=== PATIENT | male | born 1990 | race Caucasian/White ===

== ENCOUNTER 2024-02-14 14:31 | Inpatient (IN) ==
[2024-02-14 14:59] VITALS: BMI 69.7
[2024-02-14 17:58] LABS: BLOOD UREA NITROGEN 17 mg/dL (7-18); CALCIUM 8.8 mg/dL (8.5-10.1); CARBON DIOXIDE 32.8 mmol/L (21-32); CHLORIDE 105 mmol/L (98-107); CREATININE 1.06 mg/dL (0.70-1.30); GLUCOSE 98 mg/dL (65-99); POTASSIUM 3.7 mmol/L (3.5-5.1); SODIUM 142 mmol/L (136-145); eGFR NON BLACK RACES > 60 (>60)
[2024-02-14 18:02] LABS: BASOPHILS % (AUTO) 0.2 % (0.2-1.0); EOSINOPHILS # (AUTO) 0.1 x10^3/uL (0.0-0.2); EOSINOPHILS % (AUTO) 0.7 % (0.9-2.9); HEMATOCRIT 36.9 % (42.0-54.0); HEMOGLOBIN 12.4 g/dL (13.5-18.0); LYMPHOCYTES # (AUTO) 1.4 X10^3/uL (1.3-2.9); MEAN CORPUSCULAR HEMOGLOBIN 26.5 pg (27.0-34.0); MEAN CORPUSCULAR HGB CONC 33.5 g/dL (33.0-35.0); MEAN CORPUSCULAR VOLUME 79.1 fL (80.0-100.0); MEAN PLATELET VOLUME 6.6 fL (7.4-11.0); MONOCYTES # (AUTO) 0.7 x10^3/uL (0.3-0.8); MONOCYTES % (AUTO) 6.6 % (0.0-13.0); NEUTROPHILS % (AUTO) 78.5 % (42.0-75.0); PLATELET COUNT 139 X10^3/uL (150.0-450.0); RED BLOOD COUNT 4.67 X10^6/uL (4.7-6.0); RED CELL DISTRIBUTION WIDTH 18.4 % (11.6-16.5); WHITE BLOOD COUNT 10.2 X10^3/uL (3.6-10.0)
[2024-02-14] MEDS: ANCEF VIAL 1 GRAM IVP SCH (18:16)
--- NOTE | 2024-02-14 19:08 | DR.EXTPAIN ---
HPI Time seen Time Seen by Provider: 02/14/24 16:19 PCP Primary Care Physician: Gladys Horvath Complaint/Symptoms Chief Complaint Doctor Comments: 33-year-old male, history of lymphedema, complains of diffuse erythema and pain to right lower extremity encompassing his entire leg, onset this morning. Denies fever. Denies other complaints. Chief Complaint:: pt states that he had a doctor's visit todayand he told them about his leg and they told him they couldn't do anything for him to come to the emergency room. He states that he started to swell in his right lower leg about two days ago and it has become red and painful this morning. there is also a scab on the back of his knee. COVID-19 Coronavirus risk:travel/contact w/high risk person: No Has patient experienced Coronavirus symptoms: No Source History Provided: Patient Mode of arrival Mode of Arrival: Ambulatory Timing Onset of Chief Complaint: 02/12/24 PMH PMH Past Medical History: Yes Past Medical History: CHF and Sleep Apnea Past Medical History Comment: lymphedema, chronic myliod leukemia Past Surgical History: Yes Surgical History: Cholecystectomy Family History History of Family Medical Conditions: Yes Family Medical History: Cancer and Hypertension Family Medical History Comment: colon CA, breast CA Social History Does patient currently use any type of tobacco product: Yes Have you used tobacco products in the last 12 months: Yes Type of Tobacco Use: Cigarettes Alcohol Use: None Do you use any recreational Drugs:: No Lives With: Spouse Lives Where: Home Travel Risk Coronavirus risk:travel/contact w/high risk person: No Has patient experienced Coronavirus symptoms: No Infectious screening Have you traveled outside the country in the last 6 months?: No Isolation: Standard ROS Review of Systems Integumentary: Rash (RLE erythema & pain) PE Vital Signs Vitals: Vital Signs Temperature 98.4 F Pulse Rate 79 Respiratory Rate 18 Blood Pressure 114/57 O2 Sat by Pulse Oximetry 96 General Limitations: No Limitations General Appearance: Alert and In No Apparent Distress Head Head Exam: Normal Inspection Eyes Eye exam: Normal Appearance ENT ENT Exam: Normal Exam Neck Neck Exam: Normal Inspection Chest Chest Inspection: Normal Inspection Respiratory Respiratory Exam: Normal Lung Sounds Bilat Cardiovascular Cardiovascular Exam: Regular Rate and Normal Rhythm Extremities Extremities Exam: Edema (severe edema in bilat lower ext, consistent with hx of lymphedema) Back Back Exam: Normal Inspection Neurological Neurological Exam: Alert, Oriented X3 and CN II-XII Intact Psychiatric Psychiatric Exam: Normal Affect and Normal Mood Skin Skin Exam: Warm, Dry, Intact and Erythema (RLE diffuse encompasing 80% of RLE, warm to the touch, consistent with cellulitis.) COURSE Consultation Called: 19:08 Call Returned: :08 Consultation Comments: Dr Hernandez agrees to admit [facility] Labs Reviewed 02/14/24 17:35 02/14/24 17:35 Laboratory: WBC 10.2 X10^3/uL (3.6-10.0) H 02/14/24 17:35 RBC 4.67 X10^6/uL (4.7-6.0) L 02/14/24 17:35 Hgb 12.4 g/dL (13.5-18.0) L 02/14/24 17:35 Hct 36.9 % (42.0-54.0) L 02/14/24 17:35 MCV 79.1 fL (80.0-100.0) L 02/14/24 17:35 MCH 26.5 pg (27.0-34.0) L 02/14/24 17:35 MCHC 33.5 g/dL (33.0-35.0) 02/14/24 17:35 RDW 18.4 % (11.6-16.5) H 02/14/24 17:35 Plt Count 139 X10^3/uL (150.0-450.0) L 02/14/24 17:35 MPV 6.6 fL (7.4-11.0) L 02/14/24 17:35 Neut % (Auto) 78.5 % (42.0-75.0) H 02/14/24 17:35 Lymph % (Auto) 14.0 % (21.0-51.0) L 02/14/24 17:35 [place] % (Auto) 6.6 % (0.0-13.0) 02/14/24 17:35 Eos % (Auto) 0.7 % (0.9-2.9) L 02/14/24 17:35 Baso % (Auto) 0.2 % (0.2-1.0) 02/14/24 17:35 Neut # (Auto) 8.0 x10^3/uL (2.2-4.8) H 02/14/24 17:35 Lymph # (Auto) 1.4 X10^3/uL (1.3-2.9) 02/14/24 17:35 [place] # (Auto) 0.7 x10^3/uL (0.3-0.8) 02/14/24 17:35 Eos # (Auto) 0.1 x10^3/uL (0.0-0.2) 02/14/24 17:35 Baso # (Auto) 0.0 X10^3/uL (0.0-0.1) 02/14/24 17:35 Absolute Nucleated RBC 0.2 /100WBC 02/14/24 17:35 Sodium 142 mmol/L (136-145) 02/14/24 17:35 Corrected Sodium TNP 02/14/24 17:35 Potassium 3.7 mmol/L (3.5-5.1) 02/14/24 17:35 Chloride 105 mmol/L (98-107) 02/14/24 17:35 Carbon Dioxide 32.8 mmol/L (21-32) H 02/14/24 17:35 BUN 17 mg/dL (7-18) 02/14/24 17:35 Creatinine 1.06 mg/dL (0.70-1.30) 02/14/24 17:35 Est GFR (MDRD) Af Amer > 60 (>60) 02/14/24 17:35 Est GFR (MDRD) Non-Af > 60 (>60) 02/14/24 17:35 Glucose 98 mg/dL (65-99) 02/14/24 17:35 Lactic Acid 1.0 mmol/L (0.4-2.0) 02/14/24 17:35 Calcium 8.8 mg/dL (8.5-10.1) 02/14/24 17:35 Opioid Opioid Risk Tool Age (Garry box if 16-45): Yes History of Preadolescent Sexual Abuse: No Total: 1 Total Score Risk Category: Low Risk Copyright: Deniz BHARDWAJ predicting aberrant behaviors Discharge Plan Diagnosis Discharge Problem: Cellulitis of leg, right, Lymphedema of both lower extremities Discharge Plan Patient Disposition: HOME, SELF-CARE Condition: Stable Prescriptions: No Action dasatinib [Sprycel] 100 mg Tablet 100 mg PO QDAY Eliquis 5 mg Tablet 5 mg PO BID benzonatate 100 mg capsule 100 mg PO TID PRNQty: 14 0RF albuterol sulfate 90 mcg/actuation HFA aerosol inhaler 2 puff inhalation Q6H PRNQty: 6.7 0RF furosemide [Lasix] 40 mg tablet 40 mg PO DAILY Health Concerns: Post Hospitalization: new medications and changes needed to prevent readmission or further decline. Pt educated and given instructions on all concerns. Plan of Treatment: Continue with present treatment and follow up plan. Pt is to keep follow up appointment as instructed and take medications as ordered. Orders to Discharge Patient Discharge Orders: Transfer (Routine); Ordered 02/14/24 Ordered By: Kurt Mckinnon Follow ups/Referrals Follow ups/Referrals: SUNNY HORVATH [Primary Care Provider] - 3 days Instructions Stand Alone Forms: Find Help Web Site, Post Hospital Follow Up Care
[2024-02-14] MEDS ORDERED: CONSULT PHARMACY - POTASSIUM & MAGNESIUM XX SCH (22:00)
[2024-02-14] MEDS: K-DUR TAB 20 MEQ PO ONE (23:07)
[2024-02-14] MEDS: ELIQUIS PO SCH (23:07)
[2024-02-14] MEDS: NS 1,000 ML IV 1,000 ML IV SCH (23:08)
[2024-02-15] MEDS: ULTRAM PO PRN (00:02)
[2024-02-15] MEDS ORDERED: NS 100 ML IV 100 ML ONE (04:37)
[2024-02-15 05:33] LABS: EOSINOPHILS # (AUTO) 0.1 x10^3/uL (0.0-0.2); LYMPHOCYTES # (AUTO) 1.4 X10^3/uL (1.3-2.9); NEUTROPHILS # (AUTO) 5.6 x10^3/uL (2.2-4.8)
[2024-02-15 05:48] LABS: BASOPHILS % (AUTO) 0.5 % (0.2-1.0); EOSINOPHILS % (AUTO) 1.3 % (0.9-2.9); HEMOGLOBIN 11.5 g/dL (13.5-18.0); MEAN CORPUSCULAR HEMOGLOBIN 26.2 pg (27.0-34.0); MEAN CORPUSCULAR HGB CONC 32.8 g/dL (33.0-35.0); MEAN CORPUSCULAR VOLUME 79.9 fL (80.0-100.0); MEAN PLATELET VOLUME 6.9 fL (7.4-11.0); MONOCYTES # (AUTO) 0.7 x10^3/uL (0.3-0.8); MONOCYTES % (AUTO) 8.5 % (0.0-13.0); NEUTROPHILS % (AUTO) 71.7 % (42.0-75.0); PLATELET COUNT 139 X10^3/uL (150.0-450.0); RED BLOOD COUNT 4.37 X10^6/uL (4.7-6.0); RED CELL DISTRIBUTION WIDTH 18.2 % (11.6-16.5); WHITE BLOOD COUNT 7.9 X10^3/uL (3.6-10.0)
[2024-02-15 05:49] LABS: ALANINE AMINOTRANSFERASE 21 Units/L (12-78); ALBUMIN 2.6 g/dL (3.4-5.0); ALKALINE PHOSPHATASE 119 Units/L (46-116); ASPARTATE AMINO TRANSFERASE 14 Units/L (15-37); BLOOD UREA NITROGEN 18 mg/dL (7-18); CALCIUM 8.2 mg/dL (8.5-10.1); CARBON DIOXIDE 32.1 mmol/L (21-32); CHLORIDE 104 mmol/L (98-107); COR CA(FOR HYPOALB) 9.3 mg/dL (8.5-10.1); COR NA(FOR HYPERGLY) 143 mmol/L (136-145); CREATININE 1.03 mg/dL (0.70-1.30); GLUCOSE 136 mg/dL (65-99); POTASSIUM 3.6 mmol/L (3.5-5.1); SODIUM 142 mmol/L (136-145); TOTAL PROTEIN 5.8 g/dL (6.4-8.2); eGFR NON BLACK RACES > 60 (>60)
[2024-02-15] MEDS ORDERED: CONSULT PHARMACY - POTASSIUM & MAGNESIUM XX SCH (06:00)
[2024-02-15] MEDS: K-DUR TAB 20 MEQ PO SCH (09:20)
[2024-02-15] MEDS: LASIX PO SCH (09:20)
[2024-02-15] MEDS: DASATINIB 100 MG PO SCH (09:21)
[2024-02-15] MEDS: ZOSYN VIAL 3.375 GRAMS 3.375 G in NS 100 ML IV 100 ML IV SCH (10:59)
[2024-02-15] MEDS: ZYVOX 600MG IV 600 MG/300 ML BAG IV SCH (10:59)
[2024-02-15] MEDS: NS 250 ML IV 250 ML IV ONE (11:00)
[2024-02-16] MEDS: PROVENTIL NEB TX 0.083% 2.5MG/ 3ML NEB PRN (04:38)
[2024-02-16 05:26] LABS: BASOPHILS # (AUTO) 0.1 X10^3/uL (0.0-0.1); BASOPHILS % (AUTO) 0.9 % (0.2-1.0); EOSINOPHILS # (AUTO) 0.1 x10^3/uL (0.0-0.2); EOSINOPHILS % (AUTO) 1.5 % (0.9-2.9); HEMATOCRIT 36.4 % (42.0-54.0); HEMOGLOBIN 11.9 g/dL (13.5-18.0); LYMPHOCYTES # (AUTO) 1.8 X10^3/uL (1.3-2.9); LYMPHOCYTES % (AUTO) 24.4 % (21.0-51.0); MEAN CORPUSCULAR HGB CONC 32.7 g/dL (33.0-35.0); MEAN CORPUSCULAR VOLUME 79.7 fL (80.0-100.0); MEAN PLATELET VOLUME 6.5 fL (7.4-11.0); MONOCYTES # (AUTO) 0.6 x10^3/uL (0.3-0.8); MONOCYTES % (AUTO) 7.6 % (0.0-13.0); NEUTROPHILS # (AUTO) 4.9 x10^3/uL (2.2-4.8); NEUTROPHILS % (AUTO) 65.6 % (42.0-75.0); PLATELET COUNT 155 X10^3/uL (150.0-450.0); RED BLOOD COUNT 4.57 X10^6/uL (4.7-6.0); RED CELL DISTRIBUTION WIDTH 17.8 % (11.6-16.5); WHITE BLOOD COUNT 7.4 X10^3/uL (3.6-10.0)
[2024-02-16 05:38] LABS: ALANINE AMINOTRANSFERASE 25 Units/L (12-78); ALBUMIN 2.7 g/dL (3.4-5.0); ALKALINE PHOSPHATASE 138 Units/L (46-116); ASPARTATE AMINO TRANSFERASE 15 Units/L (15-37); BLOOD UREA NITROGEN 15 mg/dL (7-18); CALCIUM 8.5 mg/dL (8.5-10.1); CARBON DIOXIDE 30.4 mmol/L (21-32); CHLORIDE 105 mmol/L (98-107); COR CA(FOR HYPOALB) 9.5 mg/dL (8.5-10.1); COR NA(FOR HYPERGLY) 143 mmol/L (136-145); CREATININE 1.04 mg/dL (0.70-1.30); GLUCOSE 113 mg/dL (65-99); POTASSIUM 4.2 mmol/L (3.5-5.1); SODIUM 143 mmol/L (136-145); TOTAL PROTEIN 6.1 g/dL (6.4-8.2); eGFR NON BLACK RACES > 60 (>60)
--- NOTE | 2024-02-16 07:09 | DR.H&P ---
H&P History & Physical for Day of: H&P Date: 02/15/24 Chief Complaint Chief Complaint: right lower extremity redness History of Present Illness History of Present Illness: Patient is a 33-year-old male with a past medical history of bilateral lymphedema presenting with redness of his right lower extremity that he noticed a day ago. He reports redness up to his knee. He does have a history of having cellulitis of the lower extremities due to his lymphedema. Denies fevers, chills. Labs/imaging: WBC 10.27.9, hemoglobin 11 .5, platelets 139, sodium 142, potassium 3.6, creatinine 1.03, glucose 136, blood cultures pending. Patient was started on Ancef in the ER. Will change patient to Zosyn and linezolid. Reviewed culture the patient had when he was last admitted. Patient does have extensive redness on his right lower extremity. Will consult and have general surgery evaluate. Restart home medications. Otherwise continue with current treatment plan. Continue closely monitor and follow-up labs. Past Medical History Past Medical History: CHF and Sleep Apnea Past Surgical History Surgical History: Cholecystectomy Family History Family Medical History: Cancer and Hypertension Social History Does patient currently use any type of tobacco product: Yes Have you used tobacco products in the last 12 months: Yes Type of Tobacco Use: Cigarettes How many years tobacco product used: 10 Does any household member use tobacco: No Alcohol Use: None Drug Use: None Medications Home Medications: Home Medications Medication Instructions Recorded Confirmed Type apixaban 5 mg tablet (Eliquis) 5 mg PO BID 12/20/23 02/15/24 History dasatinib 100 mg tablet (Sprycel) 100 mg PO QDAY 12/20/23 02/15/24 History torsemide 20 mg tablet 20 mg PO QAM 02/15/24 02/15/24 History Allergies Allergies Allergy/AdvReac Type Severity Reaction Status Date / Time doxycycline Allergy Severe ANAPHALEXIS Verified 02/12/24 15:21 REACTION latex Allergy Intermediate Verified 02/12/24 15:21 clindamycin AdvReac Intermediate RASH Verified 02/12/24 15:21 sulfamethoxazole AdvReac Intermediate RASH Verified 02/12/24 15:21 [From Bactrim] trimethoprim [From Bactrim] AdvReac Intermediate RASH Verified 02/12/24 15:21 vancomycin AdvReac Intermediate Verified 02/12/24 15:21 Labs 02/16/24 05:00 02/16/24 05:00 Labs: Laboratory WBC 7.4 X10^3/uL (3.6-10.0) 02/16/24 05:00 RBC 4.57 X10^6/uL (4.7-6.0) L 02/16/24 05:00 Hgb 11.9 g/dL (13.5-18.0) L 02/16/24 05:00 Hct 36.4 % (42.0-54.0) L 02/16/24 05:00 MCV 79.7 fL (80.0-100.0) L 02/16/24 05:00 MCH 26.0 pg (27.0-34.0) L 02/16/24 05:00 MCHC 32.7 g/dL (33.0-35.0) L 02/16/24 05:00 RDW 17.8 % (11.6-16.5) H 02/16/24 05:00 Plt Count 155 X10^3/uL (150.0-450.0) 02/16/24 05:00 MPV 6.5 fL (7.4-11.0) L 02/16/24 05:00 Neut % (Auto) 65.6 % (42.0-75.0) 02/16/24 05:00 Lymph % (Auto) 24.4 % (21.0-51.0) 02/16/24 05:00 [place] % (Auto) 7.6 % (0.0-13.0) 02/16/24 05:00 Eos % (Auto) 1.5 % (0.9-2.9) 02/16/24 05:00 Baso % (Auto) 0.9 % (0.2-1.0) 02/16/24 05:00 Neut # (Auto) 4.9 x10^3/uL (2.2-4.8) H 02/16/24 05:00 Lymph # (Auto) 1.8 X10^3/uL (1.3-2.9) 02/16/24 05:00 [place] # (Auto) 0.6 x10^3/uL (0.3-0.8) 02/16/24 05:00 Eos # (Auto) 0.1 x10^3/uL (0.0-0.2) 02/16/24 05:00 Baso # (Auto) 0.1 X10^3/uL (0.0-0.1) 02/16/24 05:00 Absolute Nucleated RBC 0.0 /100WBC 02/16/24 05:00 Sodium 143 mmol/L (136-145) 02/16/24 05:00 Corrected Sodium 143 mmol/L (136-145) 02/16/24 05:00 Potassium 4.2 mmol/L (3.5-5.1) 02/16/24 05:00 Chloride 105 mmol/L (98-107) 02/16/24 05:00 Carbon Dioxide 30.4 mmol/L (21-32) 02/16/24 05:00 BUN 15 mg/dL (7-18) 02/16/24 05:00 Creatinine 1.04 mg/dL (0.70-1.30) 02/16/24 05:00 Est GFR (MDRD) Af Amer > 60 (>60) 02/16/24 05:00 Est GFR (MDRD) Non-Af > 60 (>60) 02/16/24 05:00 Glucose 113 mg/dL (65-99) H 02/16/24 05:00 Lactic Acid 1.0 mmol/L (0.4-2.0) 02/14/24 17:35 Calcium 8.5 mg/dL (8.5-10.1) 02/16/24 05:00 Corrected Calcium 9.5 mg/dL (8.5-10.1) 02/16/24 05:00 Magnesium 2.0 mg/dL (2.0-2.9) 02/16/24 05:00 Total Bilirubin 0.80 mg/dL (0.2-1.0) 02/16/24 05:00 AST 15 Units/L (15-37) 02/16/24 05:00 ALT 25 Units/L (12-78) 02/16/24 05:00 Alkaline Phosphatase 138 Units/L (46-116) H 02/16/24 05:00 Total Protein 6.1 g/dL (6.4-8.2) L 02/16/24 05:00 Albumin 2.7 g/dL (3.4-5.0) L 02/16/24 05:00 Globulin 3.4 g/dL (2.5-4.5) 02/16/24 05:00 Albumin/Globulin Ratio 0.8 Ratio (1.1-2.1) L 02/16/24 05:00 Review of Systems Constitutional: No Symptoms Reported Eyes: No Symptoms Reported ENT: No Symptoms Reported Respiratory: No Symptoms Reported Cardiovascular: No Symptoms Reported Gastrointestinal: No Symptoms Reported Genitourinary: No Symptoms Reported Musculoskeletal: Other (BLE lymphedema) Skin: Other (erythema RLE) Neurological: No Symptoms Reported Physical Exam Vital Signs: Vital Signs Temperature 98.0 F Temperature 98.1 F Pulse Rate [Brachial] 81 Pulse Rate [Brachial] 72 Pulse Rate 70 Respiratory Rate 20 Respiratory Rate 21 Blood Pressure [Left Arm] 116/58 Blood Pressure [Left Arm] 117/61 O2 Sat by Pulse Oximetry 94 O2 Sat by Pulse Oximetry 90 O2 Sat by Pulse Oximetry 90 Oriented: Normal Eyes: Normal Ear: Normal Nose: Normal Throat: Normal Respiratory: Clear Throughout Cardiovascular: Normal : Normal Auscultation: Bowel Sounds: Normal Palpation: Normal Tenderness: Normal Skin: Red (RLE) Musculoskeletal: Normal Psychiatric: Normal Mood Description: Calm and Appropriate Affect: Normal Speech Pattern: Clear and Appropriate Assessment/Plan (1) Cellulitis of leg, right: Status: Acute Plan: IV antibiotics consult general surgery (2) Lymphedema of both lower extremities: Status: Acute Review H&P Reviewed: Yes Patient was examined?: Yes
--- NOTE | 2024-02-16 14:54 | NOTE.SOAP ---
Soap Note Note for Day of Date of Exam: 02/16/24 Subjective Data Subjective Data: Patient seen for morning rounds with girlfriend and nurse at bedside. Does report continued right foot pain with ambulation. Overall the leg is feeling better. Vitals and labs overall stable. Objective Data Objective Data: Morbidly obese male in no acute distress. Hearing intact to conversation. Heart regular rate and rhythm. Speech is clear and lungs with good air movement. Bilateral legs are wrapped. Assessment Assessment: 1. Right lower extremity cellulitis-continue IV antibiotics through today. X-ray foot today. Switch to p.o. tomorrow. Plan on discharging home tomorrow afternoon or Sunday. 2. Chronic venous insufficiency. Agree with outpatient referral to new category specialist for management.
--- NOTE | 2024-02-16 15:10 | DR.CONSULT ---
CONSULT Consultation for Day of: Date: 02/15/24 Chief Complaint Chief Complaint: redness of right leg Allergies Allergies Allergy/AdvReac Type Severity Reaction Status Date / Time doxycycline Allergy Severe ANAPHALEXIS Verified 02/12/24 15:21 REACTION latex Allergy Intermediate Verified 02/12/24 15:21 clindamycin AdvReac Intermediate RASH Verified 02/12/24 15:21 sulfamethoxazole AdvReac Intermediate RASH Verified 02/12/24 15:21 [From Bactrim] trimethoprim [From Bactrim] AdvReac Intermediate RASH Verified 02/12/24 15:21 vancomycin AdvReac Intermediate Verified 02/12/24 15:21 History of Present Illness History of Present Illness: 33 yo male, morbidly obese with history of lymphedema and multiple admissions for cellulitis of the legs.Presents now with redness of the right leg . Past medical history of congestive heart failure and slwwp apnea. Past Medical History Past Medical History: CHF and Sleep Apnea Past Surgical History Surgical History: Cholecystectomy Family History Family Medical History: Cancer and Hypertension Social History Does patient currently use any type of tobacco product: Yes Have you used tobacco products in the last 12 months: Yes Type of Tobacco Use: Cigarettes How many years tobacco product used: 10 Does any household member use tobacco: No Alcohol Use: None Drug Use: None Medications Home Medications: doxycycline Allergy (Severe, Verified 02/12/24 15:21) ANAPHALEXIS REACTION latex Allergy (Intermediate, Verified 02/12/24 15:21) clindamycin Adverse Reaction (Intermediate, Verified 02/12/24 15:21) RASH sulfamethoxazole [From Bactrim] Adverse Reaction (Intermediate, Verified 02/12/24 15:21) RASH trimethoprim [From Bactrim] Adverse Reaction (Intermediate, Verified 02/12/24 15:21) RASH vancomycin Adverse Reaction (Intermediate, Verified 02/12/24 15:21) CONTINUE taking the following medications torsemide 20 mg tablet 20 mg PO QAM 02/15/24 [History] Porfirio Pace Review of Systems Constitutional: See HPI Eyes: No Symptoms Reported ENT: No Symptoms Reported Respiratory: No Symptoms Reported Cardiovascular: No Symptoms Reported Gastrointestinal: No Symptoms Reported Genitourinary: No Symptoms Reported Skin: See HPI Neurological: No Symptoms Reported Physical Exam Vital Signs: Vital Signs Temperature 98.0 F Pulse Rate [Brachial] 81 Pulse Rate 70 Respiratory Rate 20 Blood Pressure [Left Arm] 116/58 O2 Sat by Pulse Oximetry 94 O2 Sat by Pulse Oximetry 90 WBC =7.4 Oriented: Normal, Time, Person, Place and Other (morbid obesity) Eyes: Normal Ear: Normal Nose: Normal Throat: Normal Respiratory: Clear Throughout Cardiovascular: Normal : Normal Auscultation: Bowel Sounds: Normal Palpation: Normal Tenderness: Normal Skin: Other (redness right medial thigh, medial and posterior calf) Musculoskeletal: Tender (right foot ) Psychiatric: Normal Mood Description: Calm Affect: Normal Plan (1) Cellulitis of leg, right: Status: Acute Plan: continue IV antibiotcs, nothing requiring incision and drainage (2) Lymphedema of both lower extremities: Status: Acute
--- NOTE | 2024-02-16 15:15 | NOTE.SOAP ---
Soap Note Note for Day of Date of Exam: 02/16/24 Subjective Data Subjective Data: Treated for cellullitis of right leg secondary to lymphedema. Objective Data Temperature: 97.8 F Pulse Rate: 71 Respiratory Rate: 20 Blood Pressure: 110/52 O2 Sat by Pulse Oximetry: 96 Objective Data: redness right leg improved Assessment Assessment: cellulitis of the right leg Plan Plan: May discharge home from my standpoint on po antibiotics
[2024-02-16] MEDS: ZOFRAN INJ 4 MG VIAL IVP PRN (20:30)
[2024-02-17 06:10] LABS: HEMATOCRIT 35.7 % (42.0-54.0); HEMOGLOBIN 11.8 g/dL (13.5-18.0)
[2024-02-17 06:15] LABS: BASOPHILS # (AUTO) 0.1 X10^3/uL (0.0-0.1); BASOPHILS % (AUTO) 0.6 % (0.2-1.0); EOSINOPHILS # (AUTO) 0.2 x10^3/uL (0.0-0.2); LYMPHOCYTES # (AUTO) 1.6 X10^3/uL (1.3-2.9); LYMPHOCYTES % (AUTO) 15.3 % (21.0-51.0); MEAN CORPUSCULAR HEMOGLOBIN 26.4 pg (27.0-34.0); MEAN PLATELET VOLUME 6.4 fL (7.4-11.0); MONOCYTES # (AUTO) 0.8 x10^3/uL (0.3-0.8); NEUTROPHILS # (AUTO) 7.9 x10^3/uL (2.2-4.8); NEUTROPHILS % (AUTO) 74.1 % (42.0-75.0); PLATELET COUNT 184 X10^3/uL (150.0-450.0); RED BLOOD COUNT 4.47 X10^6/uL (4.7-6.0); RED CELL DISTRIBUTION WIDTH 18.1 % (11.6-16.5); WHITE BLOOD COUNT 10.6 X10^3/uL (3.6-10.0)
--- NOTE | 2024-02-17 06:16 | RAD ---
EXAM:Right foot three viewsHISTORY:PainCOMPARISON:None r.br.br foot, obscuring bone detail. There is no obvious fracture or displacement.IMPRESSION:Marked soft tissue swelling obscuring bone detail. See above. A definite fracture, dislocation or focal bone destruction is not identified.THIS IS AN ELECTRONICALLY VERIFIED FINAL REPORT02/17/2024 6:13 AM - Electronically signed by Alvaro Christianson MD
[2024-02-17 06:21] LABS: ALANINE AMINOTRANSFERASE 28 Units/L (12-78); ALBUMIN 2.6 g/dL (3.4-5.0); ALKALINE PHOSPHATASE 161 Units/L (46-116); ASPARTATE AMINO TRANSFERASE 15 Units/L (15-37); BLOOD UREA NITROGEN 14 mg/dL (7-18); CALCIUM 8.4 mg/dL (8.5-10.1); CARBON DIOXIDE 32.1 mmol/L (21-32); CHLORIDE 104 mmol/L (98-107); COR CA(FOR HYPOALB) 9.5 mg/dL (8.5-10.1); COR NA(FOR HYPERGLY) 143 mmol/L (136-145); CREATININE 0.97 mg/dL (0.70-1.30); GLUCOSE 129 mg/dL (65-99); POTASSIUM 4.6 mmol/L (3.5-5.1); SODIUM 142 mmol/L (136-145); eGFR NON BLACK RACES > 60 (>60)
--- NOTE | 2024-02-17 14:28 | NOTE.SOAP ---
Soap Note Note for Day of Date of Exam: 02/17/24 Subjective Data Subjective Data: Seen with nursing and friends for daily rounds. Right leg still very sore. Not able to ambulate more than 3 steps at this time due to pain. X-ray with soft tissue swelling but no periosteal elevation appreciated. Still on IV antibiotics. Right lower extremity still much larger than the left despite CVI both. No overnight events. Objective Data Objective Data: Morbidly obese male in no acute distress. Legs are wrapped. Heart regular rate and rhythm but distant. Lungs are clear with strong speech. Belly is soft and nontender with bowel sounds present. Assessment Assessment: 1. Right lower extremity cellulitis. Will continue IV antibiotics and wait to switch to p.o. Will get vascular to look at them again tomorrow 2. Chronic venous insufficiency. Agree with outpatient referral to new regulatory specialist for management.
[2024-02-17] MEDS: NORCO 5/325 MG TAB PO PRN (22:03)
[2024-02-18 05:48] LABS: BASOPHILS # (AUTO) 0.1 X10^3/uL (0.0-0.1); BASOPHILS % (AUTO) 0.7 % (0.2-1.0); EOSINOPHILS # (AUTO) 0.2 x10^3/uL (0.0-0.2); EOSINOPHILS % (AUTO) 1.6 % (0.9-2.9); HEMATOCRIT 37.5 % (42.0-54.0); LYMPHOCYTES # (AUTO) 2.2 X10^3/uL (1.3-2.9); LYMPHOCYTES % (AUTO) 15.5 % (21.0-51.0); MEAN CORPUSCULAR HEMOGLOBIN 25.8 pg (27.0-34.0); MEAN CORPUSCULAR HGB CONC 32.1 g/dL (33.0-35.0); MEAN CORPUSCULAR VOLUME 80.4 fL (80.0-100.0); MEAN PLATELET VOLUME 6.4 fL (7.4-11.0); MONOCYTES # (AUTO) 0.9 x10^3/uL (0.3-0.8); MONOCYTES % (AUTO) 6.4 % (0.0-13.0); NEUTROPHILS % (AUTO) 75.8 % (42.0-75.0); PLATELET COUNT 211 X10^3/uL (150.0-450.0); RED BLOOD COUNT 4.67 X10^6/uL (4.7-6.0); RED CELL DISTRIBUTION WIDTH 18.2 % (11.6-16.5); WHITE BLOOD COUNT 14.5 X10^3/uL (3.6-10.0)
[2024-02-18 06:02] LABS: ALANINE AMINOTRANSFERASE 28 Units/L (12-78); ALBUMIN 2.7 g/dL (3.4-5.0); ALKALINE PHOSPHATASE 187 Units/L (46-116); ASPARTATE AMINO TRANSFERASE 17 Units/L (15-37); BLOOD UREA NITROGEN 14 mg/dL (7-18); CALCIUM 8.7 mg/dL (8.5-10.1); CARBON DIOXIDE 33.4 mmol/L (21-32); CHLORIDE 104 mmol/L (98-107); COR CA(FOR HYPOALB) 9.7 mg/dL (8.5-10.1); COR NA(FOR HYPERGLY) 144 mmol/L (136-145); CREATININE 1.04 mg/dL (0.70-1.30); GLUCOSE 173 mg/dL (65-99); POTASSIUM 4.5 mmol/L (3.5-5.1); SODIUM 142 mmol/L (136-145); TOTAL PROTEIN 6.4 g/dL (6.4-8.2); eGFR NON BLACK RACES > 60 (>60)
[2024-02-18] MEDS: VSL#3 PROBIOTIC CAP 112.5 B PO SCH (11:31)
--- NOTE | 2024-02-18 12:56 | PCM.PROG ---
Progress Note Progress Note for Day of Date of Exam: 02/18/24 Subjective Subjective: Patient seen at bedside, no acute events overnight. He is currently admitted for right leg cellulitis and chronic lymphedema. He states he is not able to ambulate much due to leg pain. The redness on his right leg has improved. He is on IV antibiotics and pain control. He was also seen by Dr. Wilburn, no surgical indication at this time. His blood cultures are negative. Labs/imaging reviewed: -WBC 14.5 hemoglobin 12 potassium 4.5 creatinine 1.04 -Blood cultures negative Plan: Will stop IV fluids, continue IV antibiotics and pain control. Follow surgery recommendations. Keep leg elevated. PT OT as tolerated. CM discussed discharge planning including rehab placement or wheelchair. Patient prefers to get a wheelchair. He will follow-up with vascular outpatient. Replace electrolytes as needed. Monitor a.m. labs and imaging. Past Medical Family Social History Allergies: Allergies doxycycline Allergy (Severe, Verified 02/12/24 15:21) ANAPHALEXIS REACTION latex Allergy (Intermediate, Verified 02/12/24 15:21) Patient reports "hives" when taking this medication but denies any swelling or breathing issues. clindamycin Adverse Reaction (Intermediate, Verified 02/12/24 15:21) RASH Patient reports "redness" along with skin rash when taking this medication. sulfamethoxazole [From Bactrim] Adverse Reaction (Intermediate, Verified 02/12/24 15:21) RASH trimethoprim [From Bactrim] Adverse Reaction (Intermediate, Verified 02/12/24 15:21) RASH vancomycin Adverse Reaction (Intermediate, Verified 02/12/24 15:21) Patient reports that skin "gets red" when given this medication. Vital Signs and I&O's Vital Signs: Vital Signs Temperature 97.4 F Temperature 97.5 F Pulse Rate [Brachial] 75 Pulse Rate [Brachial] 65 Respiratory Rate 18 Respiratory Rate 20 Respiratory Rate 18 Blood Pressure [Left Arm] 119/57 Blood Pressure [Left Arm] 120/58 O2 Sat by Pulse Oximetry 92 O2 Sat by Pulse Oximetry 95 Intake and Output: Intake & Output 02/15/24 02/16/24 02/17/24 02/18/24 23:59 23:59 23:59 23:59 Intake Total 4703 / 4703 2888 / 2888 3280 / 3280 1042 / 1042 Output Total 1500 / 1500 651 / 651 1450 / 1450 500 / 500 Balance 3203 / 3203 2237 / 2237 1830 / 1830 542 / 542 Physical Exam Oriented: Normal, Time, Person, Place and Other (morbid obesity) Eyes: Normal Ear: Normal Nose: Normal Throat: Normal Cardiovascular: Normal and Edema Auscultation: Bowel Sounds: Normal Palpation: Normal Tenderness: Normal Skin: Other (redness right medial thigh, medial and posterior calf) Musculoskeletal: Tender (right foot ) Psychiatric: Normal Mood Description: Calm Affect: Normal Speech Pattern: Clear and Appropriate Laboratory and Diagnostics 02/18/24 05:10 02/18/24 05:10 Labs: 02/14/24 18:05 Blood Blood Culture - Preliminary 02/14/24 17:35 Blood Blood Culture - Preliminary Laboratory WBC 14.5 X10^3/uL (3.6-10.0) H 02/18/24 05:10 RBC 4.67 X10^6/uL (4.7-6.0) L 02/18/24 05:10 Hgb 12.0 g/dL (13.5-18.0) L 02/18/24 05:10 Hct 37.5 % (42.0-54.0) L 02/18/24 05:10 MCV 80.4 fL (80.0-100.0) 02/18/24 05:10 MCH 25.8 pg (27.0-34.0) L 02/18/24 05:10 MCHC 32.1 g/dL (33.0-35.0) L 02/18/24 05:10 RDW 18.2 % (11.6-16.5) H 02/18/24 05:10 Plt Count 211 X10^3/uL (150.0-450.0) 02/18/24 05:10 MPV 6.4 fL (7.4-11.0) L 02/18/24 05:10 Neut % (Auto) 75.8 % (42.0-75.0) H 02/18/24 05:10 Lymph % (Auto) 15.5 % (21.0-51.0) L 02/18/24 05:10 [place] % (Auto) 6.4 % (0.0-13.0) 02/18/24 05:10 Eos % (Auto) 1.6 % (0.9-2.9) 02/18/24 05:10 Baso % (Auto) 0.7 % (0.2-1.0) 02/18/24 05:10 Neut # (Auto) 11.0 x10^3/uL (2.2-4.8) H 02/18/24 05:10 Lymph # (Auto) 2.2 X10^3/uL (1.3-2.9) 02/18/24 05:10 [place] # (Auto) 0.9 x10^3/uL (0.3-0.8) H 02/18/24 05:10 Eos # (Auto) 0.2 x10^3/uL (0.0-0.2) 02/18/24 05:10 Baso # (Auto) 0.1 X10^3/uL (0.0-0.1) 02/18/24 05:10 Absolute Nucleated RBC 0.1 /100WBC 02/18/24 05:10 Sodium 142 mmol/L (136-145) 02/18/24 05:10 Corrected Sodium 144 mmol/L (136-145) 02/18/24 05:10 Potassium 4.5 mmol/L (3.5-5.1) 02/18/24 05:10 Chloride 104 mmol/L (98-107) 02/18/24 05:10 Carbon Dioxide 33.4 mmol/L (21-32) H 02/18/24 05:10 BUN 14 mg/dL (7-18) 02/18/24 05:10 Creatinine 1.04 mg/dL (0.70-1.30) 02/18/24 05:10 Est GFR (MDRD) Af Amer > 60 (>60) 02/18/24 05:10 Est GFR (MDRD) Non-Af > 60 (>60) 02/18/24 05:10 Glucose 173 mg/dL (65-99) H 02/18/24 05:10 Lactic Acid 1.0 mmol/L (0.4-2.0) 02/14/24 17:35 Calcium 8.7 mg/dL (8.5-10.1) 02/18/24 05:10 Corrected Calcium 9.7 mg/dL (8.5-10.1) 02/18/24 05:10 Magnesium 2.0 mg/dL (2.0-2.9) 02/16/24 05:00 Total Bilirubin 0.70 mg/dL (0.2-1.0) 02/18/24 05:10 AST 17 Units/L (15-37) 02/18/24 05:10 ALT 28 Units/L (12-78) 02/18/24 05:10 Alkaline Phosphatase 187 Units/L (46-116) H 02/18/24 05:10 Total Protein 6.4 g/dL (6.4-8.2) 02/18/24 05:10 Albumin 2.7 g/dL (3.4-5.0) L 02/18/24 05:10 Globulin 3.7 g/dL (2.5-4.5) 02/18/24 05:10 Albumin/Globulin Ratio 0.7 Ratio (1.1-2.1) L 02/18/24 05:10 Plan (1) Cellulitis of leg, right: Status: Acute Plan: IV antibiotics consult general surgery (2) Lymphedema of both lower extremities: Status: Chronic (3) Limited mobility: Status: Chronic (4) Obesity hypoventilation syndrome: Status: Chronic (5) Morbid obesity: Status: Chronic
[2024-02-18] MEDS: NS 250 ML IV 250 ML IV ONE (19:30)
[2024-02-19 05:57] LABS: BASOPHILS # (AUTO) 0.1 X10^3/uL (0.0-0.1); BASOPHILS % (AUTO) 0.7 % (0.2-1.0); EOSINOPHILS # (AUTO) 0.4 x10^3/uL (0.0-0.2); EOSINOPHILS % (AUTO) 3.5 % (0.9-2.9); HEMATOCRIT 34.5 % (42.0-54.0); HEMOGLOBIN 11.3 g/dL (13.5-18.0); LYMPHOCYTES # (AUTO) 1.5 X10^3/uL (1.3-2.9); LYMPHOCYTES % (AUTO) 13.3 % (21.0-51.0); MEAN CORPUSCULAR HEMOGLOBIN 26.1 pg (27.0-34.0); MEAN CORPUSCULAR HGB CONC 32.7 g/dL (33.0-35.0); MEAN CORPUSCULAR VOLUME 79.8 fL (80.0-100.0); MEAN PLATELET VOLUME 6.3 fL (7.4-11.0); MONOCYTES # (AUTO) 0.5 x10^3/uL (0.3-0.8); MONOCYTES % (AUTO) 4.6 % (0.0-13.0); NEUTROPHILS # (AUTO) 8.8 x10^3/uL (2.2-4.8); NEUTROPHILS % (AUTO) 77.9 % (42.0-75.0); PLATELET COUNT 233 X10^3/uL (150.0-450.0); RED BLOOD COUNT 4.33 X10^6/uL (4.7-6.0); RED CELL DISTRIBUTION WIDTH 17.8 % (11.6-16.5); WHITE BLOOD COUNT 11.3 X10^3/uL (3.6-10.0)
[2024-02-19 06:08] LABS: ALANINE AMINOTRANSFERASE 24 Units/L (12-78); ALBUMIN 2.6 g/dL (3.4-5.0); ALKALINE PHOSPHATASE 168 Units/L (46-116); ASPARTATE AMINO TRANSFERASE 10 Units/L (15-37); BLOOD UREA NITROGEN 16 mg/dL (7-18); CALCIUM 8.7 mg/dL (8.5-10.1); CARBON DIOXIDE 33.6 mmol/L (21-32); CHLORIDE 104 mmol/L (98-107); COR CA(FOR HYPOALB) 9.8 mg/dL (8.5-10.1); COR NA(FOR HYPERGLY) 142 mmol/L (136-145); CREATININE 1.04 mg/dL (0.70-1.30); GLUCOSE 117 mg/dL (65-99); POTASSIUM 4.5 mmol/L (3.5-5.1); SODIUM 142 mmol/L (136-145); TOTAL PROTEIN 6.1 g/dL (6.4-8.2); eGFR NON BLACK RACES > 60 (>60)
[2024-02-19 06:57] LABS: BAND NEUTROPHILS % 1 % (0-10)
[2024-02-19 06:58] LABS: ANISOCYTOSIS SLIGHT; HYPOCHROMASIA SLIGHT; PLATELET MORPHOLOGY COMMENT NORMAL (NORMAL)
--- NOTE | 2024-02-19 10:18 | PCM.PROG ---
Progress Note Progress Note for Day of Date of Exam: 02/19/24 Subjective Subjective: Patient seen at bedside, no acute events overnight. He did work with PT a little bit yesterday. He is still complaining of leg pain and difficulty with ambulation and transfer. He did get a wheelchair. Patient had agreed to go home with a wheelchair and do outpatient PT but now is requesting fdc placement. He states he will need more help at home so he prefers to go to rehab instead. Surgery has signed off, no need to surgical intervention, recommend antibiotics. Labs/imaging reviewed: -WBC 11.3 Hgb 11.3 BUN/Cr 16.04 -Blood Cx negative Plan: Continue IV antibiotics. PT/OT as tolerated. Keep leg elevated. CM to work on rehab placement. Patient will need a bariatric bed. He prefers to go close to [place] as he does have family there. Continue pain control. Continue home medications. Replace electrolytes prn. Monitor AM labs/imaging. Past Medical Family Social History Allergies: Allergies doxycycline Allergy (Severe, Verified 02/12/24 15:21) ANAPHALEXIS REACTION latex Allergy (Intermediate, Verified 02/12/24 15:21) Patient reports "hives" when taking this medication but denies any swelling or breathing issues. clindamycin Adverse Reaction (Intermediate, Verified 02/12/24 15:21) RASH Patient reports "redness" along with skin rash when taking this medication. sulfamethoxazole [From Bactrim] Adverse Reaction (Intermediate, Verified 02/12/24 15:21) RASH trimethoprim [From Bactrim] Adverse Reaction (Intermediate, Verified 02/12/24 15:21) RASH vancomycin Adverse Reaction (Intermediate, Verified 02/12/24 15:21) Patient reports that skin "gets red" when given this medication. Vital Signs and I&O's Vital Signs: Vital Signs Temperature 98.6 F Temperature 97.9 F Pulse Rate [Brachial] 76 Pulse Rate [Brachial] 103 Respiratory Rate 22 Respiratory Rate 20 Respiratory Rate 20 Blood Pressure [Right Arm] 128/56 Blood Pressure [Right Arm] 149/65 O2 Sat by Pulse Oximetry 94 O2 Sat by Pulse Oximetry 95 Intake and Output: Intake & Output 02/16/24 02/17/24 02/18/24 02/19/24 23:59 23:59 23:59 23:59 Intake Total 2888 / 2888 3280 / 3280 3185 / 3185 840 / 840 Output Total 651 / 651 1450 / 1450 1450 / 1450 1100 / 1100 Balance 2237 / 2237 1830 / 1830 1735 / 1735 -260 / -260 Physical Exam Oriented: Normal Eyes: Normal Ear: Normal Nose: Normal Throat: Normal Respiratory: Generalized and Diminished Cardiovascular: Normal and Edema Auscultation: Bowel Sounds: Normal Palpation: Normal Tenderness: Normal Skin: Other (redness right medial thigh, medial and posterior calf) Musculoskeletal: Tender (right foot ) Psychiatric: Normal Mood Description: Calm Affect: Normal Speech Pattern: Clear and Appropriate Laboratory and Diagnostics 02/19/24 04:40 02/19/24 04:40 Labs: 02/14/24 18:05 Blood Blood Culture - Preliminary 02/14/24 17:35 Blood Blood Culture - Preliminary Laboratory WBC 11.3 X10^3/uL (3.6-10.0) H 02/19/24 04:40 RBC 4.33 X10^6/uL (4.7-6.0) L 02/19/24 04:40 Hgb 11.3 g/dL (13.5-18.0) L 02/19/24 04:40 Hct 34.5 % (42.0-54.0) L 02/19/24 04:40 MCV 79.8 fL (80.0-100.0) L 02/19/24 04:40 MCH 26.1 pg (27.0-34.0) L 02/19/24 04:40 MCHC 32.7 g/dL (33.0-35.0) L 02/19/24 04:40 RDW 17.8 % (11.6-16.5) H 02/19/24 04:40 Plt Count 233 X10^3/uL (150.0-450.0) 02/19/24 04:40 Plt Count Comment Adequate (ADEQUATE) 02/19/24 04:40 MPV 6.3 fL (7.4-11.0) L 02/19/24 04:40 Neut % (Auto) 77.9 % (42.0-75.0) H 02/19/24 04:40 Lymph % (Auto) 13.3 % (21.0-51.0) L 02/19/24 04:40 [place] % (Auto) 4.6 % (0.0-13.0) 02/19/24 04:40 Eos % (Auto) 3.5 % (0.9-2.9) H 02/19/24 04:40 Baso % (Auto) 0.7 % (0.2-1.0) 02/19/24 04:40 Neut # (Auto) 8.8 x10^3/uL (2.2-4.8) H 02/19/24 04:40 Lymph # (Auto) 1.5 X10^3/uL (1.3-2.9) 02/19/24 04:40 [place] # (Auto) 0.5 x10^3/uL (0.3-0.8) 02/19/24 04:40 Eos # (Auto) 0.4 x10^3/uL (0.0-0.2) H 02/19/24 04:40 Baso # (Auto) 0.1 X10^3/uL (0.0-0.1) 02/19/24 04:40 Absolute Nucleated RBC 0.1 /100WBC 02/19/24 04:40 Total Counted 100 02/19/24 04:40 Neutrophils % (Manual) 70 % (39-76) 02/19/24 04:40 Band Neutrophils % 1 % (0-10) 02/19/24 04:40 Lymphocytes % (Manual) 17 % (13-43) 02/19/24 04:40 Monocytes % (Manual) 8 % (4-9) 02/19/24 04:40 Eosinophils % (Manual) 4 % (0-6) 02/19/24 04:40 Plt Morphology Comment Normal (NORMAL) 02/19/24 04:40 RBC Morphology Abnormal (NORMAL) 02/19/24 04:40 Hypochromasia Slight A 02/19/24 04:40 Anisocytosis Slight A 02/19/24 04:40 Sodium 142 mmol/L (136-145) 02/19/24 04:40 Corrected Sodium 142 mmol/L (136-145) 02/19/24 04:40 Potassium 4.5 mmol/L (3.5-5.1) 02/19/24 04:40 Chloride 104 mmol/L (98-107) 02/19/24 04:40 Carbon Dioxide 33.6 mmol/L (21-32) H 02/19/24 04:40 BUN 16 mg/dL (7-18) 02/19/24 04:40 Creatinine 1.04 mg/dL (0.70-1.30) 02/19/24 04:40 Est GFR (MDRD) Af Amer > 60 (>60) 02/19/24 04:40 Est GFR (MDRD) Non-Af > 60 (>60) 02/19/24 04:40 Glucose 117 mg/dL (65-99) H 02/19/24 04:40 Lactic Acid 1.0 mmol/L (0.4-2.0) 02/14/24 17:35 Calcium 8.7 mg/dL (8.5-10.1) 02/19/24 04:40 Corrected Calcium 9.8 mg/dL (8.5-10.1) 02/19/24 04:40 Magnesium 2.0 mg/dL (2.0-2.9) 02/16/24 05:00 Total Bilirubin 0.80 mg/dL (0.2-1.0) 02/19/24 04:40 AST 10 Units/L (15-37) L 02/19/24 04:40 ALT 24 Units/L (12-78) 02/19/24 04:40 Alkaline Phosphatase 168 Units/L (46-116) H 02/19/24 04:40 Total Protein 6.1 g/dL (6.4-8.2) L 02/19/24 04:40 Albumin 2.6 g/dL (3.4-5.0) L 02/19/24 04:40 Globulin 3.5 g/dL (2.5-4.5) 02/19/24 04:40 Albumin/Globulin Ratio 0.7 Ratio (1.1-2.1) L 02/19/24 04:40 Plan (1) Cellulitis of leg, right: Status: Acute (2) Lymphedema of both lower extremities: Status: Chronic (3) Limited mobility: Status: Chronic (4) Obesity hypoventilation syndrome: Status: Chronic (5) Morbid obesity: Status: Chronic
[2024-02-19] MEDS: TYLENOL 325 MG TAB PO PRN (19:48)
[2024-02-20] MEDS: NS 250 ML IV 250 ML IV ONE (05:01)
[2024-02-20 05:05] LABS: BASOPHILS # (AUTO) 0.1 X10^3/uL (0.0-0.1); BASOPHILS % (AUTO) 0.7 % (0.2-1.0); EOSINOPHILS # (AUTO) 0.3 x10^3/uL (0.0-0.2); EOSINOPHILS % (AUTO) 3.7 % (0.9-2.9); HEMATOCRIT 34.5 % (42.0-54.0); HEMOGLOBIN 11.3 g/dL (13.5-18.0); LYMPHOCYTES # (AUTO) 1.8 X10^3/uL (1.3-2.9); LYMPHOCYTES % (AUTO) 20.3 % (21.0-51.0); MEAN CORPUSCULAR HEMOGLOBIN 26.1 pg (27.0-34.0); MEAN CORPUSCULAR HGB CONC 32.9 g/dL (33.0-35.0); MEAN CORPUSCULAR VOLUME 79.5 fL (80.0-100.0); MEAN PLATELET VOLUME 5.9 fL (7.4-11.0); MONOCYTES # (AUTO) 0.6 x10^3/uL (0.3-0.8); MONOCYTES % (AUTO) 7.3 % (0.0-13.0); NEUTROPHILS # (AUTO) 5.9 x10^3/uL (2.2-4.8); PLATELET COUNT 255 X10^3/uL (150.0-450.0); RED BLOOD COUNT 4.34 X10^6/uL (4.7-6.0); RED CELL DISTRIBUTION WIDTH 17.8 % (11.6-16.5); WHITE BLOOD COUNT 8.7 X10^3/uL (3.6-10.0)
[2024-02-20 05:14] LABS: ALANINE AMINOTRANSFERASE 24 Units/L (12-78); ALBUMIN 2.5 g/dL (3.4-5.0); ALKALINE PHOSPHATASE 161 Units/L (46-116); ASPARTATE AMINO TRANSFERASE 9 Units/L (15-37); BLOOD UREA NITROGEN 17 mg/dL (7-18); CALCIUM 8.7 mg/dL (8.5-10.1); CARBON DIOXIDE 35.3 mmol/L (21-32); CHLORIDE 103 mmol/L (98-107); COR CA(FOR HYPOALB) 9.9 mg/dL (8.5-10.1); COR NA(FOR HYPERGLY) 144 mmol/L (136-145); CREATININE 1.08 mg/dL (0.70-1.30); GLUCOSE 131 mg/dL (65-99); POTASSIUM 4.3 mmol/L (3.5-5.1); SODIUM 143 mmol/L (136-145); eGFR NON BLACK RACES > 60 (>60)
[2024-02-20 05:34] LABS: ANISOCYTOSIS SLIGHT; HYPOCHROMASIA SLIGHT; MICROCYTOSIS SLIGHT; PLATELET MORPHOLOGY COMMENT NORMAL (NORMAL)
[2024-02-20 08:15] VITALS: RESP 21; TEMP 97.9
--- NOTE | 2024-02-20 08:25 | CT ---
EXAM:LOWER EXT WITH CONHISTORY:MID FOOT PAIN X 1 WEEK, UNABLE TO BEAR WEIGHT, PT HAS ELEPHANTIASIS;COMPARISON:NoneTECHNIQUE:M ultiple axial images of the right lower extremity were obtained with IV contrast. Coronal and sagittal reformats were made and reviewed. Dose reduction techniques included Automated Exposure Control (AEC) and adjustment of mA and kV.FINDINGS:Images were obtained from the mid tibial diaphysis to the toesThe bones are normally mineralized. No fracture or dislocation. No focal lytic or sclerotic change. No periosteal reaction to suggest osteomyelitis.There is a small soft tissue ulceration along the plantar surface of the great toe near the DIP joint. The wound at this location measures about 18 mm. There is increased density in the subcutaneous fat but I do not see focal fluid collection or abscess.Marked diffuse increased density is seen in thickened skin and in thickened subcutaneous tissue consistent with chronic lymphedema. No focal fluid collection or enhancing lesion that might suggest osteomyelitis.All visualized muscles are diffusely atrophied.IMPRESSION:1. Marked diffuse chronic lymphedema without abscess2. Ulceration on the great toe without abscess3. Diffuse muscle atrophy4. No evidence for osteomyelitisTHIS IS AN ELECTRONICALLY VERIFIED FINAL REPORT02/20/2024 8:21 AM - Electronically signed by Jesus Haynes MD
[2024-02-20 13:51] VITALS: BP 131/62; PULSE 69; O2SAT 96
== END 2024-02-20 15:45 | disposition home or self-care (01) | DRG 603 ==
LOC: MED/SURG 14:31 → ER 14:31 → MED/SURG 21:20
PROVIDERS: ADMIT Internal Medicine; ATTEND Internal Medicine
DX: R26.89 Other abnormalities of gait and mobility; Z65.8 Other specified problems related to psychosocial circumstances; I87.2 Venous insufficiency (chronic) (peripheral); R05.8 Other specified cough; L03.115 Cellulitis of right lower limb; Z99.81 Dependence on supplemental oxygen; R50.9 Fever, unspecified; E66.2 Morbid (severe) obesity with alveolar hypoventilation; J06.9 Acute upper respiratory infection, unspecified; Z03.818 Encounter for observation for suspected exposure to other biological agents ruled out; Z68.45 Body mass index [BMI] 70 or greater, adult; Z59.12 Inadequate housing utilities; R06.02 Shortness of breath; Z74.1 Need for assistance with personal care; I89.0 Lymphedema, not elsewhere classified; M79.671 Pain in right foot; Z72.0 Tobacco use

== ENCOUNTER 2024-04-06 09:11 | Inpatient (IN) ==
[2024-04-06 09:39] VITALS: BMI 66.9
[2024-04-06 10:51] LABS: BASOPHILS # (AUTO) 0.1 X10^3/uL (0.0-0.1); BASOPHILS % (AUTO) 0.2 % (0.2-1.0); HEMATOCRIT 45.1 % (42.0-54.0); HEMOGLOBIN 14.6 g/dL (13.5-18.0); LYMPHOCYTES # (AUTO) 0.2 X10^3/uL (1.3-2.9); LYMPHOCYTES % (AUTO) 0.9 % (21.0-51.0); MEAN CORPUSCULAR HEMOGLOBIN 26.5 pg (27.0-34.0); MEAN CORPUSCULAR HGB CONC 32.4 g/dL (33.0-35.0); MEAN CORPUSCULAR VOLUME 81.7 fL (80.0-100.0); MEAN PLATELET VOLUME 6.1 fL (7.4-11.0); MONOCYTES # (AUTO) 0.1 x10^3/uL (0.3-0.8); MONOCYTES % (AUTO) 0.4 % (0.0-13.0); NEUTROPHILS # (AUTO) 23.8 x10^3/uL (2.2-4.8); NEUTROPHILS % (AUTO) 98.5 % (42.0-75.0); PLATELET COUNT 172 X10^3/uL (150.0-450.0); RED BLOOD COUNT 5.52 X10^6/uL (4.7-6.0); WHITE BLOOD COUNT 24.2 X10^3/uL (3.6-10.0)
[2024-04-06] MEDS: NS 250 ML IV 25 ML IV PRN (10:52)
[2024-04-06] MEDS: LEVAQUIN PREMIX IV 500 MG 500 MG/100 ML BAG IV SCH (10:53)
[2024-04-06 10:59] LABS: BLOOD UREA NITROGEN 19 mg/dL (7-18); CALCIUM 9.1 mg/dL (8.5-10.1); CARBON DIOXIDE 26.4 mmol/L (21-32); CHLORIDE 101 mmol/L (98-107); COR NA(FOR HYPERGLY) 142 mmol/L (136-145); CREATININE 1.43 mg/dL (0.70-1.30); GLUCOSE 176 mg/dL (65-99); SODIUM 140 mmol/L (136-145); eGFR NON BLACK RACES > 60 (>60)
[2024-04-06 11:13] LABS: ANISOCYTOSIS 1+; HYPOCHROMASIA SLIGHT; PLATELET MORPHOLOGY COMMENT NORMAL (NORMAL)
[2024-04-06] MEDS: NS 1,000 ML IV 1,000 ML IV ONE ×2 (12:15→14:05)
[2024-04-06] MEDS: ZOSYN VIAL 3.375 GRAMS 3.375 G in NS 100 ML IV 100 ML IV ONE (12:16)
--- NOTE | 2024-04-06 14:31 | DR.FEVERAD ---
HPI Time seen Time Seen by Provider: 04/06/24 10:09 PCP Primary Care Physician: Gladys Blanco Complaints/Symptoms Chief Complaint Doctor Comments: 34 yo M, hx of lymphedema, also hx of recurrent cellulitis of lower ext, c/o redness/pain to RLE, accomp by fever/chills. Onset yest. Denies other complaints. Chief Complaint:: Pt states that he was running a fever at home of 103.8 and has been having pain from his stomach down since last pm. Pt states that he did take Tylenol 1000 mg at 0700 this am for the fever. Temp in triage is 100.4 orally. COVID-19 Coronavirus risk:travel/contact w/high risk person: No Has patient experienced Coronavirus symptoms: Yes Coronavirus symptoms experienced: Fever Source History Provided: Patient Mode of Arrival Mode of Arrival: Ambulatory Timing Onset of Chief Complaint: 04/05/24 PMH PMH Past Medical History: Yes Past Medical History: CHF and Sleep Apnea Past Medical History Comment: lymphadema, cardiomegaly, PE, sleep apnea, DVT, CML Past Surgical History: Yes Surgical History: Cholecystectomy Family History History of Family Medical Conditions: Yes Family Medical History: Cancer and Hypertension Social History Does patient currently use any type of tobacco product: Yes Have you used tobacco products in the last 12 months: Yes Type of Tobacco Use: Cigarettes Alcohol Use: None Do you use any recreational Drugs:: No Lives With: Family Lives Where: Home Travel Risk Coronavirus risk:travel/contact w/high risk person: No Has patient experienced Coronavirus symptoms: Yes Coronavirus symptoms experienced: Fever Infectious screening In the last 2 months have you had wt loss of >10#?: NO Have you had fever, night sweats or hemotysis?: No Have you traveled outside the country in the last 6 months?: No Isolation: Standard ROS Review of Systems Constitutional: Chills and Fever Integumentary: Rash (diffuse redness/pain to RLE) All Other Systems: Reviewed and Negative PE Vital Signs Vitals: Vital Signs Temperature 100.4 F Temperature 100.4 F Pulse Rate [Left] 112 Pulse Rate 108 Respiratory Rate 21 Respiratory Rate 22 Blood Pressure [Right Arm] 129/73 Blood Pressure 143/65 O2 Sat by Pulse Oximetry 93 O2 Sat by Pulse Oximetry 94 General Limitations: No Limitations General Appearance: Alert and In No Apparent Distress Head Head Exam: Normal Inspection Eyes Eye exam: Normal Appearance ENT ENT Exam: Normal Exam Neck Neck Exam: Normal Inspection Respiratory Respiratory Exam: Normal Lung Sounds Bilat Cardiovascular Cardiovascular Exam: Regular Rate and Normal Rhythm Abdominal Exam Abdominal Exam: Normal Inspection, Normal Bowel Sounds and Soft Extremities Extremities Exam: Other (diffuse erythema and warmth to RLE, consistent with cellulitis.) Back Back Exam: Normal Inspection Neurologic Neurological Exam: Alert and Oriented X3 Psychiatric Psychiatric Exam: Normal Affect and Normal Mood Skin Skin Exam: Warm, Dry, Intact and Normal Color ROR Labs Reviewed Laboratory Results Reviewed?: Yes 04/06/24 10:30 04/06/24 10:30 Laboratory: WBC 24.2 X10^3/uL (3.6-10.0) H 04/06/24 10:30 RBC 5.52 X10^6/uL (4.7-6.0) 04/06/24 10:30 Hgb 14.6 g/dL (13.5-18.0) 04/06/24 10:30 Hct 45.1 % (42.0-54.0) 04/06/24 10:30 MCV 81.7 fL (80.0-100.0) 04/06/24 10:30 MCH 26.5 pg (27.0-34.0) L 04/06/24 10:30 MCHC 32.4 g/dL (33.0-35.0) L 04/06/24 10:30 RDW 20.0 % (11.6-16.5) H 04/06/24 10:30 Plt Count 172 X10^3/uL (150.0-450.0) 04/06/24 10:30 Plt Count Comment Adequate (ADEQUATE) 04/06/24 10:30 MPV 6.1 fL (7.4-11.0) L 04/06/24 10:30 Neut % (Auto) 98.5 % (42.0-75.0) H 04/06/24 10:30 Lymph % (Auto) 0.9 % (21.0-51.0) L 04/06/24 10:30 [place] % (Auto) 0.4 % (0.0-13.0) 04/06/24 10:30 Eos % (Auto) 0.0 % (0.9-2.9) L 04/06/24 10:30 Baso % (Auto) 0.2 % (0.2-1.0) 04/06/24 10:30 Neut # (Auto) 23.8 x10^3/uL (2.2-4.8) H 04/06/24 10:30 Lymph # (Auto) 0.2 X10^3/uL (1.3-2.9) L 04/06/24 10:30 [place] # (Auto) 0.1 x10^3/uL (0.3-0.8) L 04/06/24 10:30 Eos # (Auto) 0.0 x10^3/uL (0.0-0.2) 04/06/24 10:30 Baso # (Auto) 0.1 X10^3/uL (0.0-0.1) 04/06/24 10:30 Absolute Nucleated RBC 0.0 /100WBC 04/06/24 10:30 Total Counted 100 04/06/24 10:30 Neutrophils % (Manual) 97 % (39-76) H 04/06/24 10:30 Lymphocytes % (Manual) 1 % (13-43) L 04/06/24 10:30 Monocytes % (Manual) 2 % (4-9) L 04/06/24 10:30 Plt Morphology Comment Normal (NORMAL) 04/06/24 10:30 RBC Morphology Abnormal (NORMAL) 04/06/24 10:30 Hypochromasia Slight A 04/06/24 10:30 Anisocytosis 1+ A 04/06/24 10:30 Sodium 140 mmol/L (136-145) 04/06/24 10:30 Corrected Sodium 142 mmol/L (136-145) 04/06/24 10:30 Potassium 4.0 mmol/L (3.5-5.1) 04/06/24 10:30 Chloride 101 mmol/L (98-107) 04/06/24 10:30 Carbon Dioxide 26.4 mmol/L (21-32) 04/06/24 10:30 BUN 19 mg/dL (7-18) H 04/06/24 10:30 Creatinine 1.43 mg/dL (0.70-1.30) H 04/06/24 10:30 Est GFR (MDRD) Af Amer > 60 (>60) 04/06/24 10:30 Est GFR (MDRD) Non-Af > 60 (>60) 04/06/24 10:30 Glucose 176 mg/dL (65-99) H 04/06/24 10:30 Lactic Acid 2.8 mmol/L (0.4-2.0) H 04/06/24 12:10 Calcium 9.1 mg/dL (8.5-10.1) 04/06/24 10:30 SARS-CoV-2 (PCR) Negative (NEGATIVE) 04/06/24 10:53 Influenza Type A (PCR) Negative (NEGATIVE) 04/06/24 10:53 Influenza Type B (PCR) Negative (NEGATIVE) 04/06/24 10:53 RSV (PCR) Negative (NEGATIVE) 04/06/24 10:53 Opioid Opioid Risk Tool Age (Garry box if 16-45): No History of Preadolescent Sexual Abuse: No Total: 0 Total Score Risk Category: Low Risk Copyright: [place] predicting aberrant behaviors Discharge Plan Diagnosis Discharge Problem: Sepsis due to cellulitis, Lymphedema Discharge Plan Patient Disposition: ADMITTED INPATIENT Condition: Stable Prescriptions: No Action montelukast 10 mg Tablet 10 mg PO DAILY metolazone 2.5 mg Tablet 2.5 mg PO DAILY ondansetron HCl 8 mg Tablet 8 mg PO TID cyanocobalamin (vitamin B-12) 1,000 mcg Tablet 1,000 mcg PO DAILY spironolactone 25 mg Tablet 25 mg PO DAILY gabapentin 100 mg Capsule 300 mg PO BID nystatin 100,000 unit/gram Powder 1 applic TOPICAL TID Health Concerns: Post Hospitalization: new medications and changes needed to prevent readmission or further decline. Pt educated and given instructions on all concerns. Plan of Treatment: Continue with present treatment and follow up plan. Pt is to keep follow up appointment as instructed and take medications as ordered. Orders to Discharge Patient Discharge Orders: Transfer (Routine); Ordered 04/06/24 Ordered By: Kurt Mckinnon Follow ups/Referrals Follow ups/Referrals: [facility],None [Primary Care Provider] - 3 days Instructions Stand Alone Forms: Find Help Web Site, Post Hospital Follow Up Care ADDITIONAL NOTES Additional Notes Additional Notes: Admitted to Dr Connor at 1405
[2024-04-06] MEDS: TYLENOL 500 MG TAB EXTRA STRENGTH PO PRN (14:40)
[2024-04-06] MEDS: NS 250 ML IV 250 ML IV ONE (16:48)
[2024-04-06] MEDS: NS 1,000 ML IV 1,000 ML IV SCH (16:48)
[2024-04-06] MEDS: ZYVOX 600MG IV 600 MG/300 ML BAG IV SCH (20:32)
[2024-04-07 06:07] LABS: BASOPHILS % (AUTO) 0.1 % (0.2-1.0); EOSINOPHILS # (AUTO) 0.1 x10^3/uL (0.0-0.2); EOSINOPHILS % (AUTO) 0.4 % (0.9-2.9); HEMOGLOBIN 13.3 g/dL (13.5-18.0); LYMPHOCYTES # (AUTO) 0.9 X10^3/uL (1.3-2.9); LYMPHOCYTES % (AUTO) 4.7 % (21.0-51.0); MEAN CORPUSCULAR HEMOGLOBIN 26.8 pg (27.0-34.0); MEAN CORPUSCULAR HGB CONC 33.2 g/dL (33.0-35.0); MEAN CORPUSCULAR VOLUME 80.6 fL (80.0-100.0); MONOCYTES # (AUTO) 0.5 x10^3/uL (0.3-0.8); MONOCYTES % (AUTO) 2.6 % (0.0-13.0); NEUTROPHILS # (AUTO) 18.4 x10^3/uL (2.2-4.8); NEUTROPHILS % (AUTO) 92.2 % (42.0-75.0); PLATELET COUNT 137 X10^3/uL (150.0-450.0); RED BLOOD COUNT 4.96 X10^6/uL (4.7-6.0); RED CELL DISTRIBUTION WIDTH 20.3 % (11.6-16.5)
[2024-04-07 06:33] LABS: INR 1.52 (0.8-1.3)
[2024-04-07 06:37] LABS: ANISOCYTOSIS 1+; BAND NEUTROPHILS % 13 % (0-10); PLATELET MORPHOLOGY COMMENT NORMAL (NORMAL)
[2024-04-07 06:38] LABS: HYPOCHROMASIA SLIGHT
[2024-04-07 06:42] LABS: ALANINE AMINOTRANSFERASE 15 Units/L (12-78); ALBUMIN 2.7 g/dL (3.4-5.0); ALKALINE PHOSPHATASE 80 Units/L (46-116); ASPARTATE AMINO TRANSFERASE 14 Units/L (15-37); BLOOD UREA NITROGEN 23 mg/dL (7-18); CALCIUM 8.9 mg/dL (8.5-10.1); CARBON DIOXIDE 30.1 mmol/L (21-32); CHLORIDE 103 mmol/L (98-107); COR CA(FOR HYPOALB) 9.9 mg/dL (8.5-10.1); CREATININE 1.15 mg/dL (0.70-1.30); GLUCOSE 104 mg/dL (65-99); MAGNESIUM 1.7 mg/dL (2.0-2.9); POTASSIUM 4.2 mmol/L (3.5-5.1); SODIUM 138 mmol/L (136-145); TOTAL PROTEIN 5.6 g/dL (6.4-8.2); eGFR NON BLACK RACES > 60 (>60)
[2024-04-07] MEDS ORDERED: CONSULT PHARMACY - POTASSIUM & MAGNESIUM XX SCH (08:00)
[2024-04-07] MEDS: MAG-OX TAB PO SCH (08:52)
[2024-04-07] MEDS: LOVENOX INJ 40 MG SYR SC SCH (08:53)
[2024-04-07] MEDS: ZOSYN VIAL 3.375 GRAMS 3.375 G in NS 100 ML IV 100 ML IV SCH (16:07)
[2024-04-08 05:54] LABS: BASOPHILS # (AUTO) 0.1 X10^3/uL (0.0-0.1); BASOPHILS % (AUTO) 0.6 % (0.2-1.0); EOSINOPHILS # (AUTO) 0.1 x10^3/uL (0.0-0.2); EOSINOPHILS % (AUTO) 0.9 % (0.9-2.9); HEMATOCRIT 37.9 % (42.0-54.0); HEMOGLOBIN 12.4 g/dL (13.5-18.0); LYMPHOCYTES % (AUTO) 10.3 % (21.0-51.0); MEAN CORPUSCULAR HEMOGLOBIN 26.6 pg (27.0-34.0); MEAN CORPUSCULAR HGB CONC 32.8 g/dL (33.0-35.0); MEAN CORPUSCULAR VOLUME 81.1 fL (80.0-100.0); MEAN PLATELET VOLUME 6.3 fL (7.4-11.0); MONOCYTES # (AUTO) 0.4 x10^3/uL (0.3-0.8); MONOCYTES % (AUTO) 4.4 % (0.0-13.0); NEUTROPHILS # (AUTO) 8.5 x10^3/uL (2.2-4.8); NEUTROPHILS % (AUTO) 83.8 % (42.0-75.0); PLATELET COUNT 118 X10^3/uL (150.0-450.0); RED BLOOD COUNT 4.67 X10^6/uL (4.7-6.0); WHITE BLOOD COUNT 10.1 X10^3/uL (3.6-10.0)
[2024-04-08 06:15] LABS: ALANINE AMINOTRANSFERASE 14 Units/L (12-78); ALBUMIN 2.6 g/dL (3.4-5.0); ALKALINE PHOSPHATASE 81 Units/L (46-116); ASPARTATE AMINO TRANSFERASE 15 Units/L (15-37); BLOOD UREA NITROGEN 18 mg/dL (7-18); CALCIUM 8.5 mg/dL (8.5-10.1); CARBON DIOXIDE 28.7 mmol/L (21-32); CHLORIDE 103 mmol/L (98-107); COR CA(FOR HYPOALB) 9.6 mg/dL (8.5-10.1); CREATININE 1.14 mg/dL (0.70-1.30); GLUCOSE 108 mg/dL (65-99); POTASSIUM 4.2 mmol/L (3.5-5.1); SODIUM 138 mmol/L (136-145); TOTAL PROTEIN 5.6 g/dL (6.4-8.2); eGFR NON BLACK RACES > 60 (>60)
[2024-04-09 05:43] LABS: BASOPHILS % (AUTO) 0.5 % (0.2-1.0); EOSINOPHILS # (AUTO) 0.1 x10^3/uL (0.0-0.2); EOSINOPHILS % (AUTO) 1.3 % (0.9-2.9); HEMATOCRIT 37.3 % (42.0-54.0); HEMOGLOBIN 12.3 g/dL (13.5-18.0); LYMPHOCYTES # (AUTO) 1.5 X10^3/uL (1.3-2.9); LYMPHOCYTES % (AUTO) 21.4 % (21.0-51.0); MEAN CORPUSCULAR HEMOGLOBIN 26.9 pg (27.0-34.0); MEAN CORPUSCULAR VOLUME 81.4 fL (80.0-100.0); MEAN PLATELET VOLUME 6.4 fL (7.4-11.0); MONOCYTES # (AUTO) 0.4 x10^3/uL (0.3-0.8); NEUTROPHILS # (AUTO) 4.8 x10^3/uL (2.2-4.8); NEUTROPHILS % (AUTO) 70.8 % (42.0-75.0); PLATELET COUNT 123 X10^3/uL (150.0-450.0); RED BLOOD COUNT 4.58 X10^6/uL (4.7-6.0); RED CELL DISTRIBUTION WIDTH 19.8 % (11.6-16.5); WHITE BLOOD COUNT 6.8 X10^3/uL (3.6-10.0)
[2024-04-09 06:06] LABS: ALANINE AMINOTRANSFERASE 18 Units/L (12-78); ALBUMIN 2.6 g/dL (3.4-5.0); ALKALINE PHOSPHATASE 97 Units/L (46-116); ASPARTATE AMINO TRANSFERASE 13 Units/L (15-37); BLOOD UREA NITROGEN 13 mg/dL (7-18); CALCIUM 8.5 mg/dL (8.5-10.1); CARBON DIOXIDE 30.8 mmol/L (21-32); CHLORIDE 106 mmol/L (98-107); COR CA(FOR HYPOALB) 9.6 mg/dL (8.5-10.1); COR NA(FOR HYPERGLY) 141 mmol/L (136-145); CREATININE 0.99 mg/dL (0.70-1.30); GLUCOSE 126 mg/dL (65-99); MAGNESIUM 2.1 mg/dL (2.0-2.9); SODIUM 140 mmol/L (136-145); TOTAL PROTEIN 5.9 g/dL (6.4-8.2); eGFR NON BLACK RACES > 60 (>60)
[2024-04-09] MEDS: CIPRO TAB 500 MG PO SCH (11:08)
[2024-04-09] MEDS: ZOSYN VIAL 3.375 GRAMS 3.375 G in NS 100 ML IV 100 ML IV SCH (14:30)
[2024-04-09] MEDS: ZYVOX 600MG IV 600 MG/300 ML BAG IV SCH (20:55)
[2024-04-10 06:23] LABS: BASOPHILS % (AUTO) 0.6 % (0.2-1.0); EOSINOPHILS # (AUTO) 0.1 x10^3/uL (0.0-0.2); EOSINOPHILS % (AUTO) 1.7 % (0.9-2.9); HEMATOCRIT 43.8 % (42.0-54.0); HEMOGLOBIN 14.4 g/dL (13.5-18.0); LYMPHOCYTES # (AUTO) 2.2 X10^3/uL (1.3-2.9); LYMPHOCYTES % (AUTO) 35.9 % (21.0-51.0); MEAN CORPUSCULAR HEMOGLOBIN 26.8 pg (27.0-34.0); MEAN CORPUSCULAR HGB CONC 32.8 g/dL (33.0-35.0); MEAN CORPUSCULAR VOLUME 81.6 fL (80.0-100.0); MEAN PLATELET VOLUME 6.4 fL (7.4-11.0); MONOCYTES # (AUTO) 0.3 x10^3/uL (0.3-0.8); MONOCYTES % (AUTO) 5.2 % (0.0-13.0); NEUTROPHILS # (AUTO) 3.4 x10^3/uL (2.2-4.8); NEUTROPHILS % (AUTO) 56.6 % (42.0-75.0); PLATELET COUNT 154 X10^3/uL (150.0-450.0); RED BLOOD COUNT 5.37 X10^6/uL (4.7-6.0); RED CELL DISTRIBUTION WIDTH 19.9 % (11.6-16.5)
[2024-04-10 06:50] LABS: ALANINE AMINOTRANSFERASE 25 Units/L (12-78); ALBUMIN 3.4 g/dL (3.4-5.0); ALKALINE PHOSPHATASE 122 Units/L (46-116); ASPARTATE AMINO TRANSFERASE 16 Units/L (15-37); BLOOD UREA NITROGEN 14 mg/dL (7-18); CALCIUM 9.1 mg/dL (8.5-10.1); CHLORIDE 104 mmol/L (98-107); CREATININE 0.93 mg/dL (0.70-1.30); GLUCOSE 95 mg/dL (65-99); POTASSIUM 4.4 mmol/L (3.5-5.1); SODIUM 142 mmol/L (136-145); TOTAL PROTEIN 7.2 g/dL (6.4-8.2); eGFR NON BLACK RACES > 60 (>60)
[2024-04-10 12:25] VITALS: BP 124/79; PULSE 66; RESP 19; TEMP 97.1; O2SAT 97
== END 2024-04-10 13:30 | disposition home or self-care (01) | DRG 872 ==
LOC: ER 09:11 → MED/SURG 15:13
PROVIDERS: ADMIT Obstetrics & Gynecology Obstetrics; ATTEND Obstetrics & Gynecology Obstetrics
DX: A41.52 Sepsis due to Pseudomonas; Z53.29 Procedure and treatment not carried out because of patient's decision for other reasons; Z59.86 Financial insecurity; Z60.8 Other problems related to social environment; I89.0 Lymphedema, not elsewhere classified; Z59.41 Food insecurity; I87.8 Other specified disorders of veins; Z03.818 Encounter for observation for suspected exposure to other biological agents ruled out; R79.1 Abnormal coagulation profile; L03.115 Cellulitis of right lower limb